=== PATIENT | male | born 1980 | race Caucasian/White ===

== ENCOUNTER 2024-12-22 15:15 | Emergency (ER) | payer SELFPAY | END 2024-12-22 16:20 | disposition home or self-care (01) | LOC: JD.ED 15:15 | DX: S68.113A Complete traumatic metacarpophalangeal amputation of left middle finger, initial encounter (principal); Z88.0 Allergy status to penicillin; W31.2XXA Contact with powered woodworking and forming machines, initial encounter | CPT/HCPCS: 64450; 99283; J2003; 99284 ==